=== PATIENT | female | born 1945 ===

== ENCOUNTER → 2016-11-03 | Outpatient (CLI) | payer OTHER ==
[2016-11-03 09:56] LABS: HEMOGLOBIN 13.3 gm/dl (12.3-15.3); RED BLOOD COUNT 4.68 M/UL (4.00-5.10); WHITE BLOOD COUNT 6.6 K/UL (4.5-11.0)
[2016-11-03 10:15] LABS: BUN/CREATININE RATIO 24 (0-10)
== END ==
LOC: LAB 08:13
PROVIDERS: Family Medicine
DX: M54.9 Dorsalgia, unspecified (principal); M79.671 Pain in right foot
CPT/HCPCS: 36415; 80053; 80061; 83036; 84550; 85025

== ENCOUNTER → 2016-11-09 | Outpatient (CLI) | payer OTHER | LOC: MAMO 11-04 14:10 | DX: Z12.31 Encounter for screening mammogram for malignant neoplasm of breast (principal); R10.2 Pelvic and perineal pain | CPT/HCPCS: G0202 ==